=== PATIENT | female | born 1945 | race Caucasian/White ===

== ENCOUNTER 2020-02-22 05:19 | Inpatient (IN) ==
--- NOTE | 2020-01-19 15:03 | PAT Medication Instructions ---
Medication Instructions Date of Service January 19, 2020 Home Medications losartan 50 mg PO QAM metoprolol succinate 25 mg PO QAM peg 400-propylene glycol [Systane Ultra] 1 drp OPB DAILY DO NOT take the morning of surgery losartan 50 mg PO QAM Take morning of surgery With a small sip of water, OTHERWISE NOTHING TO EAT OR DRINK AFTER MIDNIGHT: metoprolol succinate 25 mg PO QAM peg 400-propylene glycol [Systane Ultra] 1 drp OPB DAILY Other Notes If you have any questions please call us at [phone] or [phone] or [phone] or [phone]
--- NOTE | 2020-01-20 11:21 | Anesthesiology Consultation ---
Date of Service January 20, 2020 Assessment & Plan (1) Encounter for pre-operative examination: COVID Status: As of 01/19 assessment, patient denies travel to endemic area, known exposure/sick contacts, or symptoms of COVID19. Patient instructed that they and their household members must follow strict social distancing guidelines, wear a mask in public and avoid travel for 14 days prior to surgery. Preoperative COVID19 testing to be completed prior to surgery per surgeon's arrangements (at [facility] [place]). Patient made aware to self-isolate as much as possible between COVID testing and surgery. Chart Review Chart Review: Acceptable Risk for Surgery (pending surgeon ordered PCP clearance 01/26) and Patient seen in Pre Admission Testing Teaching & Discussion Instructed NPO after midnight before surgery, except medications with 15 cc of water. Medication instructions provided according to the PAT guidelines. History Surgery Operation Date: 02/22/20 09:00 Proposed Procedures p Left Total Knee Arthroplasty - Edwin Hoffman MD Height/Weight Height: 5 ft 4 in Weight: 73.1 kg Allergies Allergy/AdvReac Type Severity Reaction Status Date / Time doxycycline AdvReac Intermediate loose Verified 01/13/20 10:41 bowels Medications Home Medications Medication Instructions Recorded Confirmed Last Taken losartan 50 mg PO QAM 01/13/20 01/13/20 Unknown metoprolol succinate 25 mg PO QAM 01/13/20 01/13/20 Unknown peg 400-propylene glycol [Systane 1 drp OPB DAILY 01/13/20 01/13/20 Unknown Ultra] Past Medical History Medical History Dry eye syndrome GERD (gastroesophageal reflux disease) Hyperlipidemia Hypertension Osteoarthritis Restless leg syndrome Sciatica Exercise / Class Metabolic Activity II 4-5 Yardwork/Stairs/Walk up hill Past Family History Family History Other No significant family history Past Surgical History Surgical History H/O total hysterectomy History of bladder surgery BLADDER TACK History of cataract surgery RT/LEFT History of cholecystectomy History of colonoscopy History of tooth extraction Past Anesthesia History No Hx of Anesthesia Complications and No Family Hx of Anesthesia Complications History of PONV No Hx of PONV and No Hx of Motion Sickness Social History Smoking Status: Never smoker Do You Dip or Chew Tobacco: No Hx Alcohol Use: No Hx Substance Use: No Review of Systems Pt denies any recent chest pain, shortness of breath, palpitations, cough, fever, URI, or uncontrolled acid reflux. Physical Exam Vital Signs BP: 145/67 P: 58bpm SPO2: 98% RA T: 97.5 F R: 12 ENMT Mouth: + dental restorations (few crowns on cuspids); no chipped teeth and no loose teeth Thyromental Distance: > or= 3.5 Finger Breadths (4) Mallampati Class: II (anterior airway) Neck normal visual inspection; neck extension not limited Respiratory normal respiratory effort Auscultation: lungs clear to auscultation bilaterally Cardiovascular Rate/Rhythm: regular rate and regular rhythm Heart Sounds: no murmur Extremities: no edema Testing Laboratory Results 01/20/20 11:44 01/20/20 11:44 PT 10.2 Seconds (9.0-12.0) 01/20/20 11:44 INR 1.0 (0.9-1.1) 01/20/20 11:44 APTT 26.5 Seconds (21.0-31.0) 01/20/20 11:44 Hemoglobin A1c 6.1 % (4.5-5.6) H 01/20/20 11:44 Urine Color Yellow 01/20/20 Unknown Urine Appearance Clear (Clear) 01/20/20 Unknown Urine pH 5.5 (4.5-7.5) 01/20/20 Unknown Ur Specific [place] 1.012 (1.000-1.030) 01/20/20 Unknown Urine Protein Negative (Negative) 01/20/20 Unknown Urine Glucose (UA) Negative (Negative) 01/20/20 Unknown Urine Ketones Negative (Negative) 01/20/20 Unknown Urine Nitrite Negative (Negative) 01/20/20 Unknown Ur Leukocyte Esterase Negative (Negative) 01/20/20 Unknown Blood Type A Positive 01/20/20 11:44 Antibody Screen NEGATIVE 01/20/20 11:44 Electrocardiogram Date: 01/20/20 Findings: + SB @ (54bpm with sinus arrhythmia) 1st degree AV block. Chest X-Ray Date: 01/20/20 Findings: + NAD Cardiomegaly.
--- NOTE | 2020-01-20 12:19 | XRay Report ---
XR chest Pre-admission PA/Lat HISTORY: 74 years-old Female pat preoperative exam. No acute chest complaints COMPARISON: None TECHNIQUE: PA and lateral views of the chest FINDINGS: Cardiac silhouette is enlarged. No pneumothorax, pleural effusion, airspace consolidation or overt pu lmonary edema. Bones of the chest appear grossly intact. IMPRESSION: Cardiomegaly without acute process. ACT 112: Negative or not required by law. The above report was generated using voice recognition software. It may contain grammatical, syntax o r spelling errors. Electronically signed by: Sincere Gaytan M.D. 01/20/2020 12:18 PM
[2020-01-20 12:50] LABS: Basophils # (auto) 0.02 K/uL (0-0.2); Basophils % (auto) 0.4 %; Eosinophils # (auto) 0.09 K/uL (0-0.5); Eosinophils % (auto) 1.8 %; Hematocrit (blood only) 41.2 % (37-47); Hemoglobin 13.7 g/dL (12.0-16.0); Immature Granulocytes # (auto) 0.01 K/uL (0.00-0.02); Immature Granulocytes % (auto) 0.2 %; Lymphocytes # (auto) 1.77 K/uL (1.2-3.4); Mean Corpuscular Hemoglobin 28.7 pg (25-34); Mean Corpuscular Hgb Conc 33.3 g/dL (32-36); Mean Corpuscular Volume 86.4 fL (80-100); Mean Platelet Volume 11.3 fL (7.4-10.4); Monocytes # (auto) 0.47 K/uL (0.11-0.59); Monocytes % (auto) 9.6 %; Neutrophils # (auto) 2.56 K/uL (1.4-6.5); Platelet Count 235 K/uL (130-400); RDW Coefficient of Variation 13.7 % (11.5-14.5); RDW Standard Deviation 43.5 fL (36.4-46.3); Red Blood Count 4.77 M/uL (4.2-5.4); White Blood Count 4.92 K/uL (4.8-10.8)
[2020-01-20 13:05] LABS: Appearance Urine Clear (Clear); Bilirubin Urine Negative (Negative); Blood Urine Negative (Negative); Color Urine Yellow; Glucose Urine UA Negative (Negative); Ketones Urine Negative (Negative); Leukocyte Esterase Urine Negative (Negative); Nitrite Urine Negative (Negative); Protein Urine Negative (Negative); Specific Gravity Urine 1.012 (1.000-1.030); Urobilinogen Urine Negative (Negative); pH Urine 5.5 (4.5-7.5)
[2020-01-20 13:15] LABS: Partial Thromboplastin Ratio 0.9; Partial Thromboplastin Time 26.5 Seconds (21.0-31.0); Prothrombin Time 10.2 Seconds (9.0-12.0)
[2020-01-20 13:30] LABS: Albumin Level 4.1 gm/dl (3.4-5.0); BUN Creatinine Ratio 26.1 (10-20); Calcium 9.8 mg/dl (8.5-10.1); Creatinine Clr Calc Pharmacy 68.1 ml/min; Est GFR (African American) 97.3; Est GFR (Non-African American) 83.9; Potassium 4.6 mmol/L (3.5-5.1)
--- NOTE | 2020-01-20 16:08 | Electrocardiogram Report ---
Test Reason : Blood Pressure : / mmHG Vent. Rate : 054 BPM Atrial Rate : 054 BPM P-R Int : 216 ms QRS Dur : 106 ms QT Int : 460 ms P-R-T Axes : 051 080 044 degrees QTc Int : 436 ms Sinus bradycardia with sinus arrhythmia with 1st degree A-V block Otherwise normal ECG No previous ECGs available Confirmed by Hans Younger ([id number]) on 01/20/2020 4:08:25 PM Referred By: Edwin Hoffman Confirmed By:Hans Younger
[2020-01-21 05:47] LABS: Estimated Average Glucose 128 mg/dl; Hemoglobin A1C 6.1 % (4.5-5.6)
--- NOTE | 2020-02-21 16:47 | History and Physical Report ---
DATE OF ADMISSION: 02/22/2020 CHIEF COMPLAINT: Chronic left knee pain. HISTORY OF PRESENT ILLNESS: This is a 74-year-old female patient of Dr. Hoffman'louie complaining of chronic left knee pain, longstanding, now progressively getting worse. The patient has failed conservative treatment including intra-articular injections, topical analgesics, anti-inflammatories, home exercise program and the use of a brace. The patient has increased pain with weightbearing activities and her pain does interfere with her activities of daily living. The patient has been diagnosed with end-stage osteoarthritis per clinical and radiographic exams and wishes to proceed with a left total knee arthroplasty. PAST MEDICAL HISTORY: Hypertension, hypercholesterolemia, osteoarthritis, rheumatoid arthritis, sciatica, obesity. SOCIAL HISTORY: Nonsmoker and nondrinker. PAST SURGICAL HISTORY: Gallbladder and uterine surgery. FAMILY HISTORY: Noncontributory. REVIEW OF SYSTEMS: Chronic left knee pain, otherwise denies any shortness of breath, chest pain, nausea, vomiting or any other joint complaints. MEDICATIONS: 1. Crestor 5 mg daily. 2. Metoprolol 25 mg daily. 3. Losartan 50 mg daily. ALLERGIES: No known drug allergies. PHYSICAL EXAMINATION: GENERAL: Well-developed, well-nourished 74-year-old female in no acute distress. She is alert and oriented x3 and pleasant. HEENT: Normocephalic, atraumatic. Extraocular motions are intact. Pupils are equal and reactive to light. HEART: Regular rate and rhythm, no murmurs. LUNGS: Clear. ABDOMEN: Soft, nontender, bowel sounds present. EXTREMITIES: Left lower extremity varus deformity with medial joint line tenderness. Positive crepitation, mild effusion. Limited range of motion of 0 to 115 with the knee, 4/5 strength in her left lower extremity. Neurologically and neurovascularly intact left lower extremity. DIAGNOSES: Left knee end-stage osteoarthritis, hypertension, hypercholesterolemia, rheumatoid arthritis, osteoarthritis, sciatica, obesity. PLAN: The patient was advised of her diagnosis. Indications, risks, benefits, postop course have all been reviewed. The patient wished to proceed with a left total knee arthroplasty. Necessary consent forms, preoperative testing and clearances will be obtained.
[2020-02-22] MEDS ORDERED: GABAPENTIN 300 MG CAP PO SCH (06:00)
[2020-02-22] MEDS ORDERED: FAMOTIDINE 20 MG TAB PO SCH (06:00)
[2020-02-22] MEDS ORDERED: TRANEXAMIC ACID 1,000 MG **IV Pre-op IV SCH (06:00)
[2020-02-22] MEDS ORDERED: METOCLOPRAMIDE HCL 10 MG TABLET PO SCH (06:00)
[2020-02-22] MEDS ORDERED: TRANEXAMIC ACID 1,000 MG **IV Intra-op IV SCH (06:00)
[2020-02-22] MEDS ORDERED: CEFAZOLIN 1000MG 1,000 MG/7.5 ML SYR IV SCH (06:00)
[2020-02-22] MEDS ORDERED: ROPIVACAINE 0.5% HCL/PF 150 MG, BUPIVACAINE 0.5% MPF 30 ML, EPINEPHrine 30MG/30ML (OR U... INFIL SCH (06:00)
[2020-02-22] MEDS ORDERED: CeleBREX 200 MG CAP PO SCH (06:00)
[2020-02-22] MEDS ORDERED: ACETAMINOPHEN 500 MG TAB PO SCH (06:00)
[2020-02-22] MEDS ORDERED: LR 500ML BOLUS, THEN 15ML/HR IV SCH (06:00)
[2020-02-22] MEDS ORDERED: dexAMETHasone 4 MG TAB PO SCH (06:00)
[2020-02-22] MEDS ORDERED: fentaNYL citrate 100 MCG/2 ML VIAL ONE (06:18)
[2020-02-22] MEDS ORDERED: MIDAZOLAM HCL 1 MG/ML 2ML VIAL ONE (06:18)
[2020-02-22] MEDS ORDERED: ROPIVACAINE 0.5% 5 MG/ML 30 ML VIAL ONE (06:26)
[2020-02-22] MEDS ORDERED: BUPIVACAINE 0.5 % 5 MG/1 ML PF 10ML VIAL ONE (06:26)
[2020-02-22] MEDS ORDERED: ORTHO JOINT ANESTHETIC ONE (06:46)
[2020-02-22] MEDS ORDERED: BACITRACIN INJ 50,000 UNIT VIAL ONE (06:46)
--- NOTE | 2020-02-22 07:06 | History & Physical Bridge Note ---
Date of Service February 22, 2020 History & Physical Bridge Note I have examined the patient, reviewed the History & Physical and in the interval since the performance of the History & Physical I have noted the following changes of clinical significance: no changes noted
[2020-02-22] MEDS ORDERED: ATROPINE SULFATE 0.1 MG/ML 10ML SYR IV PRN (07:31)
[2020-02-22] MEDS ORDERED: ePHEDrine sulfate 50 MG/ML AMP IV PRN (07:31)
[2020-02-22] MEDS ORDERED: PROPOFOL IV EMULSION 10 MG/ML 20 ML VIAL IV ONE (07:42)
[2020-02-22] MEDS ORDERED: LIDOCAINE HCL 2% 2 ML VIAL/AMP(20MG/ML) INFIL ONE (07:42)
--- NOTE | 2020-02-22 09:08 | Post Operative Brief Note ---
Immediate Post Op Note v1 Date of Surgery February 22, 2020 Pre & Post Diagnosis Operation Date: 02/22/20 07:00 Pre-Op Diagnosis: Unilateral Primary Osteoarthritis, Left Knee Post-Op Diagnosis: Unilateral Primary Osteoarthritis, Left Knee I identified the patient and participated in the time-out.: Yes Procedure Operation Date: 02/22/20 07:00 Actual Procedures p Left Total Knee Arthroplasty(Left) - Edwin Hoffman MD Surgeon Edwin Hoffman MD Supervisor [employer] SARAH Lozoya Estimated Blood Loss 5 Findings Consistent with Post-Op Diagnosis Specimens Bone cuts Drains Hemovac Drain (dual trocar) Anesthesia Type MAC Spinal Regional Complications none Disposition Accompanied Patient To Recovery: No Disposition: Recovery Room Overlapping Procedure I was immediately available: during the entire case.
--- NOTE | 2020-02-22 09:33 | Operative Report ---
Post Operative Report Pre & Post Diagnosis Operation Date: 02/22/20 07:00 Pre-Op Diagnosis: Unilateral Primary Osteoarthritis, Left Knee Post-Op Diagnosis: Unilateral Primary Osteoarthritis, Left Knee I identified the patient and participated in the time-out.: Yes Procedure Operation Date: 02/22/20 07:00 Actual Procedures p Left Total Knee Arthroplasty(Left) - Edwin Hoffman MD Surgeon Edwin Hoffman MD Head Grower SARAH Lozoya Estimated Blood Loss 5 Findings Consistent with Post-Op Diagnosis Specimens Bone cuts Drains 2 Hemovac Anesthesia Type MAC Spinal Regional Complications none Disposition Accompanied Patient To Recovery: No Disposition: Recovery Room Indications 74-year-old female chronic bilateral knee pain radiographs demonstrate advanced bilateral knee osteoarthritis patellofemoral joint medial compartment [id number] medial compartment left knee on weightbearing films. Tricompartmental osteophytes Description of Procedure Patient taken to the operating room placed supine on the operating table and anesthetized under spinal MAC regional anesthesia. Exam under anesthesia d emonstrated good range of motion varus knee moderate effusion no instability. A pneumatic tourniquet was placed about the thigh of the left lower extremity. The left lower extremity was prepped and draped in usual fashion. Leg was elevated exsanguinated with an Esmarch bandage and the pneumatic was raised to 300 mm mercury. An anterior incision was made across the left knee. The skin was incised longitudinally subcutaneous flaps were elevated and an incision was made through the medial retinaculum extending up into the mid third of the quadriceps tendon and extended down to the medial tibial tubercle. Intra- articular findings demonstrated tricompartmental osteoarthritis [id number] medial compartment grade 4 medial facet patellofemoral OA. The knee was exposed by excising the infrapatellar fat pad, excising the meniscal remnants and anterior cruciate ligament. Any inflamed synovial tissue was resected. The fat pad over the anterior femur was resected for placement of the component in that area. The lateral synovial bands were release. Appropriate releases were performed to balance ligaments. The femur was exposed. The custom femoral cutting block was pinned in position. The distal femoral cutting block was applied. The distal femoral cut was made with the oscillating saw. The size 8, 4-in-1 cutting block was placed. The anterior and posterior chamfer cuts were made. The knee was extended and a subperiosteal peel lateral release was performed around the patella. The patella width was measured and width was reproduced using freehand cut technique. The 32 x 8.5 millimeter symmetrical patella was used. 3 drill holes are made for the pegs. The tibia was exposed. A custom tibial cutting block was positioned and drill holes were made for the cutting guide. Cutting guide was placed and the proximal cut was made with the oscillating saw. All osteophytes were resected. The lamina technology applications engineer was used to assess ligamentous balance and the ligaments were balanced in extension and flexion. This required a medial and posterior medial release. The tibia was reexposed and measured for a size E tibial component. This was externally rotated in line with the tibial tubercle and the fixation pins were drilled. The proximal tibia was fashioned with the drill and punch. The size 8 CR femoral trial was inserted. The trial MC inserts were used. The 12 mm insert gave balanced ligaments through full range of motion. The patella tracked centrally. the trials were removed. The orthomix anesthetic cocktail was injected per protocol. The knee was then copiously irrigated with pulsatile lavage antibiotic solution with bacitracin. The final components were cemented with Simplex cement. The final components were persona left CR size 8 standard femoral component, E tibia, 12 MC tibial polyethylene, 32 x 8.5 patella. While the cement cured with the knee in full extension the Betadine soak was used per protocol. After the cement cured, the knee joint was copiously irrigated with antibiotic solution with bacitracin. 2 drains were brought out laterally and connected to a Hemovac. The quadriceps tendon and medial retinaculum were closed with interrupted [id number] #1 Vicryl sutures. The knee was taken through a full range of motion and repair was secure. The subcutaneous tissues were closed with 2-0 Vicryl sutures and skin was closed with cassie. Sterile dressings were applied and the patient tolerated the procedure well. Octavio SMITH my physician instructional assistant, assisted in soft tissue retraction instrument management leg positioning the closure and will participate in the postoperative care of the patient. I attest to the content of the Intraoperative Record and any orders documented therein. Any exceptions are noted below.
--- NOTE | 2020-02-22 09:45 | XRay Report ---
LEFT KNEE 2 VIEWS History: Left total knee arthroplasty. Degenerative arthritis. Postop. FINDINGS: The patient is status post a left total knee arthroplasty. The hardware is intact. No fract ure or dislocation. Skin cassie and surgical drains are in place. IMPRESSION: Left total knee arthroplasty. No evidence for hardware complication. ACT 112: Negative or not required by law. Electronically signed by: Bishop Caballero M.D. 02/22/2020 9:44 AM
--- NOTE | 2020-02-22 10:44 | Anesthesiology Progress Note ---
Date of Service February 22, 2020 Anesthesia Post Procedure Vital Signs Vital Signs: Temp Pulse Pulse Resp BP Pulse Ox 02/22/20 10:30 52 L 18 122/61 94 02/22/20 10:20 36.3 C L 52 L 16 137/58 L 95 02/22/20 10:10 51 L 18 138/74 95 02/22/20 10:00 60 16 131/65 95 02/22/20 09:50 54 L 16 143/64 H 97 02/22/20 09:40 60 18 144/68 H 97 02/22/20 09:30 52 L 18 140/68 100 02/22/20 09:20 58 L 18 137/64 100 02/22/20 09:13 36.1 C L 64 18 137/70 100 02/22/20 06:25 66 18 190/88 H 99 02/22/20 06:03 36.9 C 68 18 184/84 H 99 Transfer of Care Handoff Completed per policy Notes Mental Status: alert / awake / arousable and participated in evaluation Patient Amnestic to Procedure: Yes Nausea / Vomiting: adequately controlled Pain: adequately controlled Airway Patency, RR, SpO2: stable & adequate BP & HR: stable & adequate Hydration State: stable & adequate Neuraxial Anesthesia: was administered and sensory block is resolving Anesthetic Complications: no major complications apparent
[2020-02-22] MEDS ORDERED: ONDANSETRON INJ 2 MG/ML 2 ML VIAL IV PRN (11:04)
[2020-02-22] MEDS ORDERED: bisacodyL 10 MG SUPP PR PRN (11:04)
[2020-02-22] MEDS ORDERED: MAGNESIUM HYDROXIDE SUSP 30 ML UDC PO PRN (11:04)
[2020-02-22] MEDS ORDERED: HYDROmorphone INJ 0.5 MG/0.5 ML SYR IV PRN (11:04)
[2020-02-22] MEDS ORDERED: OXYCODONE HCL IR 5 MG TAB (IMMEDIATE RELEASE) PO PRN (11:04)
[2020-02-22] MEDS ORDERED: NALOXONE HCL 0.4 MG/1 ML VIAL/CARP IV PRN (11:04)
[2020-02-22] MEDS: SODIUM CHLORIDE 0.9% 1000ML 1,000 ML IV SCH ×2 (11:24→21:23)
[2020-02-22] MEDS: ACETAMINOPHEN 500 MG TAB PO SCH ×2 (13:28→21:54)
[2020-02-22] MEDS: CEFAZOLIN 1000MG 1,000 MG/7.5 ML SYR IV SCH ×2 (15:21→23:39)
[2020-02-22] MEDS: CeleBREX 200 MG CAP PO SCH (21:21)
[2020-02-22] MEDS: SENNA 8.6 MG TAB PO SCH (21:21)
[2020-02-22] MEDS: DOCUSATE SODIUM 100 MG CAP PO SCH (21:22)
[2020-02-22] MEDS: ASPIRIN 81 MG ECTAB PO SCH (21:22)
[2020-02-23] MEDS: ACETAMINOPHEN 500 MG TAB PO SCH ×3 (06:13→20:51)
[2020-02-23 06:17] LABS: Hematocrit (blood only) 34.1 % (37-47); Hemoglobin 11.4 g/dL (12.0-16.0); Mean Corpuscular Hemoglobin 29.1 pg (25-34); Mean Corpuscular Hgb Conc 33.4 g/dL (32-36); Mean Platelet Volume 11.1 fL (7.4-10.4); Platelet Count 173 K/uL (130-400); RDW Coefficient of Variation 13.6 % (11.5-14.5); RDW Standard Deviation 43.5 fL (36.4-46.3); Red Blood Count 3.92 M/uL (4.2-5.4); White Blood Count 10.52 K/uL (4.8-10.8)
[2020-02-23 06:44] LABS: BUN Creatinine Ratio 22.5 (10-20); Calcium 9.2 mg/dl (8.5-10.1); Creatinine Clr Calc Pharmacy 67.6 ml/min; Est GFR (African American) 97.3; Est GFR (Non-African American) 83.9; Potassium 4.2 mmol/L (3.5-5.1)
--- NOTE | 2020-02-23 07:50 | Anesthesiology Progress Note ---
Date of Service February 23, 2020 Anesthesia Post Procedure Vital Signs Vital Signs: Temp Pulse Pulse Resp BP Pulse Ox 02/23/20 03:42 36.6 C 53 L 20 150/62 H 97 02/22/20 23:52 36.6 C 56 L 18 159/69 H 96 02/22/20 19:58 36.4 C L 62 20 151/68 H 95 02/22/20 16:45 36.4 C L 62 18 132/64 94 02/22/20 14:36 36.4 C L 61 16 116/61 95 02/22/20 13:34 36.4 C L 67 16 134/71 94 02/22/20 12:34 36.4 C L 56 L 17 127/69 96 02/22/20 12:01 56 L 16 128/73 95 02/22/20 11:31 36.5 C 58 L 16 126/76 95 02/22/20 10:54 36.7 C 57 L 18 128/67 96 02/22/20 10:40 61 18 115/61 97 02/22/20 10:30 52 L 18 122/61 94 02/22/20 10:20 36.3 C L 52 L 16 137/58 L 95 02/22/20 10:10 51 L 18 138/74 95 02/22/20 10:00 60 16 131/65 95 02/22/20 09:50 54 L 16 143/64 H 97 02/22/20 09:40 60 18 144/68 H 97 02/22/20 09:30 52 L 18 140/68 100 02/22/20 09:20 58 L 18 137/64 100 02/22/20 09:13 36.1 C L 64 18 137/70 100 Pain Intensity Left Hip: Pain Intensity: 2 Notes Mental Status: alert / awake / arousable and participated in evaluation Patient Amnestic to Procedure: Yes Nausea / Vomiting: adequately controlled Pain: adequately controlled Airway Patency, RR, SpO2: stable & adequate BP & HR: stable & adequate Hydration State: stable & adequate Neuraxial Anesthesia: was administered and sensory block resolved Anesthetic Complications: no major complications apparent and Pt Satisfied with anesthetic care
--- NOTE | 2020-02-23 08:41 | Consultation ---
Date of Consultation February 23, 2020 Assessment & Plan (1) S/P total knee arthroplasty: Post op day# 1 S/P L TKA by Dr Hoffman EBL #5ml Hemovac: Total 300ml -pain management per ortho -wound management per ortho -PT/OT as appropriate -DVT prophylaxis per ortho -incentive spirometry -Hgb: 11.4 from 13.7 pre-op. Continue to monitor H&H (2) Hypertension: Stable -Continue losartan (3) Hyperlipidemia: -Recently prescribed atorvastatin. Has not started yet -Recommend starting atorvastatin as directed. Pt wishes to start upon hospital discharge DVT Prophylaxis -SCDs per ortho Disposition per primary service Follows with Dr Galvan for routine care Pt was seen and care coordinated with Dr Barrera. See addendum Thank you for this consultation. We will follow the patient with you during their hospital stay. You can reach a member of the [facility] Hospitalist Team 19/01 via pager @ [phone]. Supervising Physician Co-Signing Physician Notes Patient is a 74-year-old female with history of hypertension, hyperlipidemia and other medical problems was seen and examined postop after having left total knee arthroplasty by Dr. Gama. Patient is doing well postop. Lower extremity numbness improved when compared to prior surgery. Reports having some sciatic pain after PT this morning. Denies any chest pain, shortness of breath, dizziness, nausea, abdominal pain. + Flatus, no BM yet. On exam patient is moderately built and nourished, no apparent distress, normocephalic atraumatic, lungs are clear to auscultation, S1-S2, no murmur, no pedal edema, abdomen soft, nontender, normal bowel sounds, left knee surgical site in dressing, alert, awake, oriented, grossly no focal neurological deficits. S/P TKA pod#[address] Hoffman. Monitor for postop anemia. Continue local wound care, activity, DVT prophylaxis as per primary team. Continue bowel regimen to prevent constipation. Pain control. Continue PT OT. Continue losartan for high blood pressure. May need further evaluation for sciatic pain with orthopedics as outpatient. I personally reviewed the record. Patient is interviewed and examined at bedside. Patient's care is coordinated with Macrina Sevilla. Please refer to the documentation above for details of patient's presentation and for discussion of other issues. History of Present Illness Requesting Physician: Dr Hoffman Reason for Consultation: post op medical management Attending Physician: Edwin Hoffman MD History of Present Illness Pt is 74 y/o F with PMH HTN, dyslipidemia seen in consultation s/p L TKA yesterday by Dr Hoffman. Post op pt reports doing well. Does report some residual numbness sensation to left leg. Eating and drinking well. Urinating without difficulty. Passing gas but no BM yet. Denies fever/chills, diaphoresis, N/V/D, DANIEL, dizziness, CP, SOB, palpitations, cough, choking, abdominal pain, weakness, extremity edema, rashes, urinary symptoms. Allergies Allergy/AdvReac Type Severity Reaction Status Date / Time doxycycline AdvReac Intermediate loose Verified 02/22/20 05:45 bowels Home Medications Home Medications Medication Instructions Recorded Confirmed Type losartan 50 mg PO QAM 01/13/20 02/22/20 History metoprolol succinate 25 mg PO QAM 01/13/20 01/13/20 History peg 400-propylene glycol [Systane 1 drp OPB DAILY 01/13/20 01/13/20 History Ultra] atorvastatin 40 mg PO WK 02/23/20 02/23/20 History Patient History Medical History Dry eye syndrome GERD (gastroesophageal reflux disease) Hyperlipidemia Hypertension Osteoarthritis Restless leg syndrome Sciatica Surgical History H/O total hysterectomy History of bladder surgery BLADDER TACK History of cataract surgery RT/LEFT History of cholecystectomy History of colonoscopy History of tooth extraction S/P total knee arthroplasty Left knee - 02/22/2020; Dr Hoffman Family History Other Heart disease Stroke Social History Smoking Status: Never smoker Second Hand Exposure: No; Do You Dip or Chew Tobacco: No; Tobacco Cessation Education Requested by Patient: No Hx Alcohol Use: No Hx Substance Use: No Preferred Language: Vietnamese Communication Ability: Effective Accreditation Specialist Required: No Beliefs That Will Affect Care: None Current Living Situation: Alone Feels Safe at Home: Yes Safety Concerns: Feels Safe At This Time Review of Systems Review of Systems: All systems reviewed & are unremarkable except as noted in HPI & below Physical Exam Physical Exam: General: no distress, WDWN Head: normocephalic, atraumatic Eyes: conjunctiva non-injected, anicteric ENT: normal inspection external ears, nose, mucous membranes moist Neck: supple, trachea midline Lungs: clear, no respiratory distress, no wheezing/rhonchi/rales CV: RRR, no murmur, no pretibial edema Abd: normal BS, soft, non-tender Ext: non-tender, bilateral pedal pushes intact, limited left pedal pull Neuro: A&O x 3, no focal deficits noted, normal affect Skin: warm, dry Results & Data ([facility]) Vital Signs (Past 12 Hours) Vital Signs Temp Pulse Resp BP BP Pulse Ox 02/23/20 07:55 36.5 C 58 L 16 156/71 H 98 02/23/20 03:42 36.6 C 53 L 20 150/62 H 97 02/22/20 23:52 36.6 C 56 L 18 159/69 H 96 Laboratory Results Short CBC 02/23/20 Range/Units 05:49 WBC 10.52 (4.8-10.8) K/uL Hgb 11.4 L (12.0-16.0) g/dL Hct 34.1 L (37-47) % Plt Count 173 (130-400) K/uL BMP 02/23/20 05:49 Sodium 140 Potassium 4.2 Chloride 111 H Carbon Dioxide 25 BUN 16 Creatinine 0.71 Glucose 111 H Calcium 9.2
[2020-02-23] MEDS: ASPIRIN 81 MG ECTAB PO SCH ×2 (08:44→20:35)
[2020-02-23] MEDS: METOPROLOL SUCC 25MG EXT REL TAB PO SCH (08:44)
[2020-02-23] MEDS: MULTIVITAMIN TAB PO SCH (08:45)
[2020-02-23] MEDS: CeleBREX 200 MG CAP PO SCH ×2 (08:45→20:34)
[2020-02-23] MEDS: LOSARTAN POTASSIUM 50 MG TAB PO SCH (08:45)
[2020-02-23] MEDS: DOCUSATE SODIUM 100 MG CAP PO SCH ×3 (08:45→20:35)
--- NOTE | 2020-02-23 10:47 | Orthopedic Progress Note ---
Date of Service February 23, 2020 Assessment & Plan (1) S/P total knee arthroplasty: POD #1, Left TKA PT/ OT DVT proph- ASA, TEDS D/C planning- Home with OPPT at home Appreciate medicine input. Continue PT and pain control. Admission and Anticipated Discharge Date Admission Date: February 22, 2020 Subjective POD#1, Doing well, pain is only issue, worsened overnight. Has not done a lot of PT yet other than to bathroom. Denies SOB, CP, N/V, dizziness. Pain controlled well. States she is doing OPPT at home on D/C. Physical Exam Physical Exam: Left knee dressings c/d/i, no drainage. Toes/ ankle mobile. No calf tenderness. A&Ox3. Mild drop foot, improving. Results & Data ([facility]) Vital Signs (Past 12 Hours) Vital Signs Temp Pulse Resp BP BP Pulse Ox 02/23/20 08:48 64 165/77 H 99 02/23/20 07:55 36.5 C 58 L 16 156/71 H 98 02/23/20 03:42 36.6 C 53 L 20 150/62 H 97 02/22/20 23:52 36.6 C 56 L 18 159/69 H 96
[2020-02-23] MEDS: SENNA 8.6 MG TAB PO SCH (20:35)
[2020-02-24 06:18] LABS: Hematocrit (blood only) 35.8 % (37-47); Hemoglobin 11.8 g/dL (12.0-16.0); Mean Corpuscular Hemoglobin 28.4 pg (25-34); Mean Corpuscular Volume 86.1 fL (80-100); Mean Platelet Volume 10.5 fL (7.4-10.4); Platelet Count 189 K/uL (130-400); RDW Coefficient of Variation 13.8 % (11.5-14.5); RDW Standard Deviation 43.5 fL (36.4-46.3); Red Blood Count 4.16 M/uL (4.2-5.4); White Blood Count 8.52 K/uL (4.8-10.8)
[2020-02-24] MEDS: ACETAMINOPHEN 500 MG TAB PO SCH (06:27)
[2020-02-24 06:50] LABS: BUN Creatinine Ratio 18.1 (10-20); Calcium 9.6 mg/dl (8.5-10.1); Creatinine Clr Calc Pharmacy 65.7 ml/min; Est GFR (Non-African American) 81.1
--- NOTE | 2020-02-24 08:06 | Orthopedic Progress Note ---
Date of Service February 24, 2020 Assessment & Plan (1) S/P total knee arthroplasty: POD #2, Left TKA PT/ OT DVT proph- ASA, TEDS D/C planning- Home with OPPT at home, today. Appreciate medicine input. Increased PT likely due to pain, per nursing only using tylenol. Admission and Anticipated Discharge Date Admission Date: February 23, 2020 Subjective POD#2, Doing well, pain is only issue. Did well in PT. Denies SOB, CP, N/V, dizziness. Pain controlled well. States she is doing OPPT at home on D/C. Physical Exam Physical Exam: Left knee silverlon c/d/i, no drainage. Toes/ ankle mobile. No calf tenderness. A&Ox3. Results & Data ([facility]) Vital Signs (Past 12 Hours) Vital Signs Temp Pulse Pulse Resp BP BP Pulse Ox 02/24/20 07:30 36.6 C 64 16 160/78 H 164/80 H 97 02/23/20 23:14 36.6 C 69 18 150/70 H 97
[2020-02-24] MEDS: METOPROLOL SUCC 25MG EXT REL TAB PO SCH (08:40)
[2020-02-24] MEDS: LOSARTAN POTASSIUM 50 MG TAB PO SCH (08:40)
[2020-02-24] MEDS: ASPIRIN 81 MG ECTAB PO SCH (08:41)
[2020-02-24] MEDS: CeleBREX 200 MG CAP PO SCH (08:41)
[2020-02-24] MEDS: DOCUSATE SODIUM 100 MG CAP PO SCH (08:41)
[2020-02-24] MEDS: MULTIVITAMIN TAB PO SCH (08:42)
--- NOTE | 2020-02-24 11:36 | Hospitalist Progress Note ---
Date of Service February 24, 2020 Assessment & Plan (1) S/P total knee arthroplasty: S/P Left TKA Acute post Op -blood loss anemia S/P Left TKA by Dr Hoffman POD#2 Pain control, DVT prophylaxis, wound care, activity as per primary team Appreciate orthopedics input Continue PT OT, incentive spirometer Monitor CBC (2) Hypertension: Blood pressure slightly elevated secondary to pain Continue losartan Monitor (3) Hyperlipidemia: Recently prescribed atorvastatin. Has not started yet Recommend starting atorvastatin as directed. Pt wishes to start upon hospital discharge DVT PX: SCDs per ortho Disposition per primary service Admission and Anticipated Discharge Date Admission Date: February 23, 2020 Subjective Patient is seen and examined at bedside Complains of minimal pain at the site of surgery of left knee with ambulation Otherwise feels well today Denies chest pain, shortness of breath, dizziness, nausea, abdominal pain Offers no other complaints Review of Systems Review of Systems: All systems reviewed & are unremarkable except as noted in HPI & below Physical Exam Physical Exam: Physical Exam: Vitals signs as noted above General Appearance:Moderately built and nourished, no apparent distress Head: normocephalic, Atraumatic Eyes: normal inspection, EOMI Neck: supple, Trachea midline Respiratory/Chest: Normal breath sounds, CTA Cardiovascular: S1, S2, No murmur Abdomen/GI:Soft, Non tender, Bowel sounds present Extremities/Musculoskelatal:normal inspection, no edema, Left Knee in dressing Neurologic/Psych:AAOX3, grossly no focal neurological deficits Skin: normal color, warm Results & Data Results & Data ([facility]) Vital Signs (Past 12 Hours) Vital Signs Temp Pulse Pulse Resp BP BP Pulse Ox 02/24/20 10:36 36.6 C 69 64 16 160/78 H 164/80 H 97 02/24/20 07:30 36.6 C 64 16 160/78 H 164/80 H 97 Laboratory Results Short CBC 02/24/20 Range/Units 05:47 WBC 8.52 (4.8-10.8) K/uL Hgb 11.8 L (12.0-16.0) g/dL Hct 35.8 L (37-47) % Plt Count 189 (130-400) K/uL BMP 02/24/20 05:47 Sodium 140 Potassium 4.0 Chloride 107 Carbon Dioxide 27 BUN 13 Creatinine 0.73 Glucose 82 Calcium 9.6
--- NOTE | 2020-03-08 00:50 | Discharge Summary (DS) ---
HISTORY OF PRESENT ILLNESS: This is a 74-year-old female patient of Dr. Hoffman'louie complaining of chronic left knee pain, longstanding, now progressively getting worse. The patient failed conservative treatment and elected to proceed with a left total knee arthroplasty. PAST MEDICAL HISTORY: Hypertension, hypercholesterolemia, osteoarthritis, rheumatoid arthritis, sciatica and obesity. POSTOPERATIVE COURSE: The patient underwent a left total knee arthroplasty on 02/22/2020. She was followed closely with medical consultation, DVT prophylaxis in the form of aspirin, physical therapy and pain control. She has slight increase in her blood pressure likely due to pain as her vital signs and other lab work were stable. Her blood pressure did stabilize on discharge. Otherwise, an uneventful postoperative course. PHYSICAL EXAMINATION: On discharge, left knee Silverlon dressing was clean, dry and intact. There is no redness or drainage. She had no calf tenderness. Negative Homans sign. Her toes and ankle were mobile. Neurologically and neurovascularly she is intact in the left lower extremity. DIAGNOSES: Status post left total knee arthroplasty with postoperative hypertension due to pain. She has a history of hypertension, hypercholesterolemia, osteoarthritis, rheumatoid arthritis, sciatica and obesity. PLAN: The patient was discharged home with home outpatient physical therapy. She will continue her preadmission medications with the addition of aspirin for DVT prophylaxis as well as the addition of pain medications as needed. She will follow up as scheduled as an outpatient.
== END 2020-02-24 12:27 | disposition home health service (06) | DRG 470 ==
LOC: ASU 05:19 → 3N 05:19

== ENCOUNTER 2022-05-07 09:59 | Observation (INO) ==
--- NOTE | 2022-04-08 14:05 | PAT Medication Instructions ---
Medication Instructions Date of Service April 08, 2022 Home Medications Medication Instructions Recorded celecoxib 200 mg capsule (Celebrex) 200 mg PO BID 30 days #60 caps 02/24/20 losartan 50 mg tablet 50 mg PO QAM metoprolol succinate 25 mg tablet,extended release 24 hr 50 mg PO QAM peg 400-propylene glycol 0.4 %-0.3 % eye drops (Systane Ultra) 1 drp OPB DAILY atorvastatin 40 mg tablet 5 mg PO QAM celecoxib 200 mg capsule (Celebrex) 200 mg PO BID ASK your surgeon for instructions celecoxib 200 mg capsule (Celebrex) 200 mg PO BID DO NOT take the morning of surgery losartan 50 mg tablet 50 mg PO QAM Take morning of surgery With a small sip of water, OTHERWISE NOTHING TO EAT OR DRINK AFTER MIDNIGHT: metoprolol succinate 25 mg tablet,extended release 24 hr 50 mg PO QAM atorvastatin 40 mg tablet 5 mg PO QAM peg 400-propylene glycol 0.4 %-0.3 % eye drops (Systane Ultra) 1 drp OPB DAILY Other Notes If you have any questions please call us at [phone] or [phone] or [phone] or [phone]
--- NOTE | 2022-04-11 13:33 | Anesthesiology Consultation ---
Date of Service April 11, 2022 Assessment & Plan (1) Encounter for pre-operative examination: - COVID screening: Per assessment on 04/11: No known COVID-19 positive contacts or current COVID-19 related symptoms. Travel screen negative. At surgeon discretion if preop Covid testing being done. - S/P Left TKA (02/22/20): SAB at L3/4 x1 attempt + PNB at [facility]. No issues noted per post-op anesthesia progress note. - Hematology telemedicine visit (12/20/20): "The heterozygous factor V Leiden (FVL) variant (1691G>A; R506Q) in the coagulation Factor V gene was detected by real-time PCR. This mutation leads to reduced inactivation of clotting factor V by activated protein C (i.e. APC resistance), which causes increased thrombin generation. Heterozygous carriers of the FVL mutation have an approximately 3- fold to 8-fold increased risk of venous thromboembolism (VTE) compared to non- carriers. However, the absolute risk of VTE in heterozygotes remains low, with only ~5% of carriers developing a VTE by age 65. The prevalence of FVL mutations varies according to population. Approximately 3-8% of the general [place] and population carry a heterozygous FVL mutation." - Cardiology office visit (07/23/21): "Paroxysmal atrial tachycardia.. Patient states she could not tolerate the increased dose of metoprolol 75 mg and reduce the dose to 50 mg p.o. daily. She states that she is otherwise feeling much better this week. She denies chest pain, dyspnea, or syncope. She also states her symptoms of palpitations are less. Patient can go back on metoprolol succinate 50 mg p.o. daily.. Return to clinic in 6 months, sooner if needed." - Patient acceptable risk for surgery pending surgeon-ordered PCP preop evaluation (Dr. Mei- scheduled 04/14). Chart Review Chart Review: Patient seen in Pre Admission Testing Teaching & Discussion Pre-Anesthesia Teaching/Discussion Notes: Instructed NPO after midnight before surgery,except medications with 15 cc of water. Medication instructions provided according to the PAT guidelines. History Surgery Operation Date: 05/07/22 09:35 Proposed Procedures p Right Total Knee Arthroplasty - Edwin Hoffman MD Height/Weight Height: 5 ft 4 in Weight: 75.3 kg Allergies Allergy/AdvReac Type Severity Reaction Status Date / Time doxycycline AdvReac Intermediate loose Verified 04/08/22 07:33 bowels Medications Home Medications Medication Instructions Recorded Confirmed Last Taken losartan 50 mg tablet 50 mg PO QAM 01/13/20 04/08/22 02/21/20 08:00 metoprolol succinate 25 mg 50 mg PO QAM 01/13/20 04/08/22 02/22/20 04:00 tablet,extended release 24 hr peg 400-propylene glycol 0.4 %-0.3 1 drp OPB DAILY 01/13/20 04/08/22 02/22/20 04 :00 % eye drops (Systane Ultra) atorvastatin 40 mg tablet 5 mg PO QAM 02/23/20 04/08/22 Unknown celecoxib 200 mg capsule (Celebrex) 200 mg PO BID 30 days #60 caps 02/24/20 04/08/22 Unknown Past Medical History Medical History Dry eye syndrome Factor 5 Leiden mutation, heterozygous Dx 2020 (2 markers), [facility] hemat[facility] History of COVID-19 Dx 05/2021- loss of taste/smell, fatigue, Covid PNA > symptoms resolved Hyperlipidemia Hypertension Osteoarthritis Paroxysmal atrial tachycardia Restless leg syndrome Sciatica Exercise / Class Metabolic Activity II 4-5 Yardwork/Stairs/Walk up hill Past Family History Family History Other Heart disease Stroke Past Surgical History Surgical History H/O total hysterectomy History of bladder surgery BLADDER TACK History of cataract surgery RT/LEFT History of cholecystectomy History of colonoscopy History of tooth extraction S/P total knee arthroplasty Left TKA (02/22/20): SAB at L3/4 x1 attempt + PNB at [facility]. No issues noted per post-op anesthesia progress note. Past Anesthesia History No Hx of Anesthesia Complications and No Family Hx of Anesthesia Complications History of PONV No Hx of PONV and Hx of Motion Sickness (+ vertigo) Social History Smoking Status: Never smoker Do You Dip or Chew Tobacco: No Hx Alcohol Use: No Hx Substance Use: No substance use type: does not use Review of Systems Patient denies chest pain, shortness of breath, dyspnea on exertion, fever, chills, cough, wheezing, palpitations. Physical Exam Vital Signs VITALS BP 137/79 P 69 TEMP 97.9 SP02 98%RA RESP 16 PHYSICAL Full cervical extension range of motion. Full TMJ range of motion. TMD 2.5 finger breaths (small chin) Mallampati Score 2 Dentition: intact, plan for upcoming root canal/repair 04/23- on abx (pt aware to obtain approval of timing for dental work prior to surgery) Lungs: clear throughout to auscultation Cardiac: regular rate and rhythm, no murmurs noted Spine: normal Carotid arteries: negative bruit Extremities: no edema Lab Results Anesthesia Preop Results Results Anesthesia Widget: WBC 6.59 K/ul (4.8-10.8) 04/11/22 Hgb 13.1 g/dl (12.0-16.0) 04/11/22 Hct 38.9 % (34.1-44.9) 04/11/22 Plt 210 K/uL (130-400) 04/11/22 Na 137 mmol/L (136-145) 04/11/22 K 4.4 mmol/L (3.5-5.1) 04/11/22 Cl 103 mmol/L (98-107) 04/11/22 CO2 26 mmol/L (21-32) 04/11/22 BUN 18 mg/dl (6-23) 04/11/22 Creat 0.71 mg/dl (0.6-1.2) 04/11/22 Glucose Level 127 mg/dl (70-99(Fasting)) H 04/11/22 PT 10.2 Seconds (9.0-12.0) 04/11/22 PTT 27.0 Seconds (21.0-31.0) 04/11/22 INR 1.0 (0.9-1.1) 04/11/22 HA1c 6.0 % (4.5-5.6) H 04/11/22 Urine Color Yellow 04/11/22 Urine Appearance Clear (Clear) 04/11/22 Urine pH 5.5 (4.5-7.5) 04/11/22 Urine Specific [place] 1.016 (1.000-1.030) 04/11/22 Urine Protein Negative (Negative) 04/11/22 Urine Glucose (UA) Negative (Negative) 04/11/22 Urine Ketones Negative (Negative) 04/11/22 Urine Blood Negative (Negative) 04/11/22 Urine Nitrite Negative (Negative) 04/11/22 Urine Bilirubin Negative (Negative) 04/11/22 Urine Urobilinogen Negative (Negative) 04/11/22 Urine Leukocyte Esterase 1+ (Negative) H 04/11/22 Urine WBC (Auto) 1-5 /hpf (0-5) 04/11/22 Urine RBC (Auto) 0-4 /hpf (0-4) 04/11/22 Urine Hyaline Casts (Auto) 0 /lpf (0-5) 04/11/22 Urine Epithelial Cells (Auto) >30 /lpf (0-5) H 04/11/22 Urine Bacteria (Auto) Negative (Negative) 04/11/22 Blood Type A Positive 04/11/22 Antibody Screen NEGATIVE 04/11/22 Testing Electrocardiogram Date: 06/30/21 Sinus rhythm with first-degree AV block at 82 bpm. Possible LAE. RBBB. Chest X-Ray Date: 10/14/21 Unchanged mild enlargement of the cardiomediastinal silhouette. Resolution of previously seen bilateral airspace opacities. No focal consolidation, pleural effusion or pneumothorax. No evidence of acute cardiopulmonary disease. Echocardiogram Date: 04/03/20 LVEF greater than 70%. No regional motion abnormality. Grade 1 diastolic dysfunction. Mild TR. Stress Test Date: 09/19/20 Type: exercise Negative exercise stress echo/EKG for ischemia at 85% MPHR. No stress-induced chest pain. LVEF 55-59%. Mildly increased concentric LV wall thickness. Grade 1 diastolic dysfunction. Mild AR/MR/TR/FL. Poor functional status. COVID-19 Risk Screen Screening Information COVID-19 Screen Date: 04/11/22 Exposure 21 Days Family/Household +COVID Last 21 Days: No Exposure 10 Days Any COVID Exposure Last 10 Days: No Symptoms Last 10 Days Experienced COVID Sx Last 10 Days: No + COVID 0-90 Days COVID + in Last 0-90 Days: No
--- NOTE | 2022-04-13 09:06 | History & Physical Report ---
Date of Service April 13, 2022 Assessment & Plan (1) Primary osteoarthritis of right knee: Plan: Treatment options discussed with the patient. She has failed conservative measures. She would like to proceed with surgical invention. Risks, benefits and alternatives to surgery including but not limited to infection, DVT, pain, stiffness, need for revision surgery, damage to blood vessels, damage to nerves, PE, , were discussed with the patient and they wish to proceed. Plan on right total knee arthroplasty scheduled for May 07 at [facility] with Dr. Hoffman. We will plan on home health PT postop. We will plan on Xarelto 10 mg daily for 1 month postop for DVT prophylaxis. All questions answered. She will follow up postop. History of Present Illness Chief Complaint: Right knee pain Primary Care Provider: Charisma Galvan DO 77-year-old female with past medical history significant for hypertension, factor V Leiden mutation who presents with ongoing right knee pain. She has failed conservative measures including steroid injections and anti- inflammatories. Pain is interfering with her daily activities. She would like to proceed with surgical invention. Patient denies headaches, sweats, fevers, chills, double vision, blurred vision, cough, sore throat, dysphagia, chest pain, sob, wheezing, n/v/d/c, numbness, tingling, fatigue, urinary symptoms, mood disorders. ROS positive for right knee pain and stiffness. Allergies Allergy/AdvReac Type Severity Reaction Status Date / Time doxycycline AdvReac Intermediate loose Verified 04/08/22 07:33 bowels Home Medications Medication Instructions Recorded Confirmed Type losartan 50 mg tablet 50 mg PO QAM 01/13/20 04/08/22 History metoprolol succinate 25 mg 50 mg PO QAM 01/13/20 04/08/22 History tablet,extended release 24 hr peg 400-propylene glycol 0.4 %-0.3 1 drp OPB DAILY 01/13/20 04/08/22 History % eye drops (Systane Ultra) atorvastatin 40 mg tablet 5 mg PO QAM 02/23/20 04/08/22 History celecoxib 200 mg capsule (Celebrex) 200 mg PO BID 30 days #60 caps 02/24/20 04/08/22 Rx Past Med/Surg History Medical History Dry eye syndrome Factor 5 Leiden mutation, heterozygous Dx 2020 (2 markers), [facility] History of COVID-19 Dx 05/2021- loss of taste/smell, fatigue, Covid PNA > symptoms resolved Hyperlipidemia Hypertension Osteoarthritis Paroxysmal atrial tachycardia Restless leg syndrome Sciatica Surgical History H/O total hysterectomy History of bladder surgery BLADDER TACK History of cataract surgery RT/LEFT History of cholecystectomy History of colonoscopy History of tooth extraction S/P total knee arthroplasty Left TKA (02/22/20): SAB at L3/4 x1 attempt + PNB at [facility]. No issues noted per post-op anesthesia progress note. Family History Other Heart disease Stroke Social History Smoking Status: Never smoker Second Hand Exposure: No; Hx Alcohol Use: No Hx Substance Use: No Preferred Language: Chinese Communication Ability: Effective Emt Required: No Beliefs That Will Affect Care: None Current Living Situation: Alone Feels Safe at Home: Yes Assistive Devices: None Review of Systems All systems reviewed & are unremarkable except as noted in HPI & below Physical Exam Constitutional: well developed and well nourished; no acute distress Eyes: PERRL, conjunctivae normal, anicteric sclerae ENMT: external ear and nose normal, oropharynx normal Neck: trachea midline, no thyromegaly Respiratory: normal respiratory effort, lungs clear to auscultation Cardiovascular: RRR, no murmur, no edema Musculoskeletal: Right knee: Varus alignment. Mild effusion. Tenderness medial joint line. She has positive Ese's. Stable to valgus varus stress test. Range of motion 10 to 125 degrees. Skin: no rashes, warm and dry Neurologic: patellar DTR's 2+ bilat, sensation intact Psychiatric: A+Ox3, euthymic affect Results & Data ([facility]) Diagnostic Findings Right knee radiographs demonstrate tricompartmental degenerative changes. She has [id number] medial compartment on flexion view. There is subchondral sclerosis.
[~2022-05-07 09:59] MED LIST: ACETAMINOPHEN 500 MG TAB PO SCH; BUPIVACAINE 0.5 % 5 MG/1 ML PF 10ML VIAL ONE; CeleBREX 200 MG CAP PO SCH; FAMOTIDINE 20 MG TAB PO SCH; GABAPENTIN 300 MG CAP PO SCH; LR 500ML BOLUS, THEN 15ML/HR IV SCH; METOCLOPRAMIDE HCL 10 MG TABLET PO SCH; MIDAZOLAM HCL 1 MG/ML 2ML VIAL ONE; ROPIVACAINE 0.5% 5 MG/ML 30 ML VIAL ONE; ROPIVACAINE 0.5% HCL/PF 150 MG, BUPIVACAINE 0.75% MPF 20 ML, EPINEPHrine 30MG/30ML (OR ... INSTIL SCH; TRANEXAMIC ACID 1,000 MG **IV Intra-op IV SCH; TRANEXAMIC ACID 1,000 MG **IV Pre-op IV SCH; ceFAZolin 2000MG 2,000 MG/15 ML SYR IV SCH; dexAMETHasone 4 MG TAB PO SCH
[2022-05-07] MEDS ORDERED: fentaNYL citrate 100 MCG/2 ML VIAL IV PRN (11:51)
[2022-05-07] MEDS ORDERED: ONDANSETRON INJ 2 MG/ML 2 ML VIAL IV PRN ×2 (11:51→16:31)
[2022-05-07] MEDS ORDERED: ATROPINE SULFATE 0.1 MG/ML 10ML SYR IV PRN (11:51)
[2022-05-07] MEDS ORDERED: ePHEDrine sulfate 50 MG/ML AMP IV PRN (11:51)
[2022-05-07] MEDS ORDERED: ORTHO JOINT ANESTHETIC ONE (12:00)
--- NOTE | 2022-05-07 12:37 | History & Physical Bridge Note ---
Date of Service May 07, 2022 History & Physical Bridge Note I have examined the patient, reviewed the History & Physical and in the interval since the performance of the History & Physical I have noted the following changes of clinical significance: no changes noted
[2022-05-07] MEDS ORDERED: ONDANSETRON INJ 2 MG/ML 2 ML VIAL ONE (13:19)
[2022-05-07] MEDS ORDERED: LIDOCAINE 2% 2 ML VIAL/AMP(20MG/ML) INFIL ONE (13:19)
[2022-05-07] MEDS ORDERED: PROPOFOL IV EMULSION 10 MG/ML 20 ML VIAL IV ONE (13:19)
--- NOTE | 2022-05-07 14:23 | Operative Report ---
Post Operative Report Pre & Post Diagnosis Operation Date: 05/07/22 12:15 Pre-Op Diagnosis: Right Knee Osteoarthritis Post-Op Diagnosis: Right Knee Osteoarthritis I identified the patient and participated in the time-out.: Yes Procedure Operation Date: 05/07/22 12:15 Actual Procedures p Right Total Knee Arthroplasty(Right), jefe and Acticoat superficial wound VAC- Edwin Hoffmna MD Surgeon Edwin Hoffman MD Carton Stamper Nnamdi SMITH Estimated Blood Loss 5 Findings Consistent with Post-Op Diagnosis Specimens Bone cuts Drains 2 Hemovac Complications none Disposition Disposition: Recovery Room Indications 77-year female with chronic progressive osteoarthritis right knee [id number] medial compartment. Patient has successful left knee replacement wants to proceed with right knee replacement at this time. Description of Procedure Patient was taken to the operating room placed supine on the operating table and anesthetized under spinal MAC regional block anesthesia. Exam under anesthesia demonstrated 10 degree flexion contracture with flexion to 125 degrees and no instability with a varus knee. A pneumatic tourniquet was placed about the thigh of the right lower extremity. The right lower extremity was prepped and draped in usual sterile fashion. The leg was elevated exsanguinated with an Esmarch bandage and the pneumatic tourniquet was raised to 325 mm mercury. An anterior incision was made across the right knee. The skin was incised longitudinally subcutaneous flaps were elevated and an incision was made through the medial retinaculum extending up into the mid third of the quadriceps tendon and extended down to the medial tibial tubercle. Intra-articular findings demonstrated osteoarthritis medial compartment and on the patella there was a grade 4 patella chondral lesion normal trochlear groove articular surface with eburnated bone with [id number] medial compartment with medial osteophytes.. The knee was exposed by excising the infrapatellar fat pad, excising the meniscal remnants and anterior cruciate ligament. Any inflamed synovial tissue was resected. The fat pad over the anterior femur was resected for placement of the component in that area. The lateral synovial bands were release. The femur was exposed. The custom femoral cutting block was pinned in position. The distal femoral cutting block was applied. The distal femoral cut was made with the oscillating saw. The size 9, 4-in-1 cutting block was placed. The anterior and posterior chamfer cuts were made. The knee was extended and a subperiosteal peel lateral release was performed around the patella. The patella width was measured and width was reproduced using freehand cut technique. The 32 millimeter symmetrical patella was used. 3 drill holes are made for the pegs. The tibia was exposed. A custom tibial cutting block was positioned and drill holes were made for the cutting guide. Cutting guide was placed and the proximal cut was made with the oscillating saw. All osteophytes were resected. The lamina molder machine was used to assess ligamentous balance and the ligaments were balanced in extension and flexion. The tibia was reexposed and measured for a size E tibial component. This was externally rotated in line with the tibial tubercle and the fixation pins were drilled. The proximal tibia was fashioned with the drill and punch. The size 9 CR femoral trial was inserted. The trial MC inserts were used. The 12 mm insert gave balanced ligaments through full range of motion. The patella tracked centrally. the trials were removed. The orthomix anesthetic cocktail was injected per protocol. The knee was then copiously irrigated with pulsatile lavage saline solution. The final components were cemented with Refobacin bone cement. The final components were 9 narrow right CR persona femoral component, right E tibial component, 12 mm MC polyethylene and a 32 symmetrical patella. After the cement cured with the knee in full extension the Betadine soak was used per protocol. The knee joint was copiously irrigated with pulsatile lavage saline solution . 2 drains were brought out laterally and connected to a Hemovac. The quadriceps tendon and medial retinaculum were closed with interrupted [id number] #1 Vicryl sutures. The knee was taken through a full range of motion and repair was secure. The subcutaneous tissues were closed with 2-0 Vicryl sutures and skin was closed with cassie. Jefe and Acticoat superficial wound VAC were applied and the patient tolerated the procedure well. Nnamdi SMITH my physician ortho assistant participated as cutter first and was integral part in all aspects of the procedure, he assisted in soft tissue retraction, instrument management ,leg positioning, the closure and application of the superficial wound VAC and will participate in the postoperative care of the patient. I attest to the content of the Intraoperative Record and any orders documented therein. Any exceptions are noted below.
--- NOTE | 2022-05-07 15:30 | XRay Report ---
XR knee RT 1 or 2V routine CLINICAL HISTORY: Surgical Post Op TECHNIQUE: 2 views of the right knee were obtained. Comparison: None available at the time of this dictation. FINDINGS: Patient is status post total knee arthroplasty with expected postsurgical changes including soft tiss ue swelling and subcutaneous emphysema. No periarticular lucency or hardware fracture is seen. IMPRESSION: Expected postoperative appearance status post placement of total knee arthroplasty. ACT 112: Negative or not required by law. Electronically signed by: Kory Daniel M.D. 05/07/2022 3:29 PM
--- NOTE | 2022-05-07 16:29 | Anesthesiology Progress Note ---
Date of Service May 07, 2022 Anesthesia Post Procedure Vital Signs Vital Signs: Temp Pulse Pulse Resp BP Pulse Ox O2 Del Method 05/07/22 15:50 36.3 C L 52 L 19 123/66 94 Room Air 05/07/22 15:40 52 L 21 127/63 96 Room Air 05/07/22 16:00 52 L 22 119/63 96 Room Air 05/07/22 15:30 55 L 21 125/60 94 Room Air 05/07/22 15:20 53 L 18 123/60 100 Oxymask 05/07/22 15:10 55 L 17 118/59 L 100 Oxymask 05/07/22 15:00 36.1 C L 62 14 119/61 97 Oxymask 05/07/22 10:51 36.4 C L 65 18 149/71 H 98 Room Air O2 Flow Rate 05/07/22 15:50 05/07/22 15:40 05/07/22 16:00 05/07/22 15:30 05/07/22 15:20 11 05/07/22 15:10 11 05/07/22 15:00 11 05/07/22 10:51 Transfer of Care Handoff Completed per policy Notes Mental Status: alert / awake / arousable and participated in evaluation Patient Amnestic to Procedure: Yes Nausea / Vomiting: adequately controlled Pain: adequately controlled Airway Patency, RR, SpO2: stable & adequate BP & HR: stable & adequate Hydration State: stable & adequate Neuraxial Anesthesia: was administered and sensory block is resolving Anesthetic Complications: no major complications apparent and Pt Satisfied with anesthetic care
[2022-05-07] MEDS ORDERED: MAGNESIUM HYDROXIDE SUSP 30 ML UDC PO PRN (16:31)
[2022-05-07] MEDS ORDERED: bisacodyL 10 MG SUPP PR PRN (16:31)
[2022-05-07] MEDS ORDERED: SODIUM CHLORIDE 0.9% 1000ML 1,000 ML IV SCH (16:31)
[2022-05-07] MEDS ORDERED: METOCLOPRAMIDE HCL INJ 5 MG/ML 2 ML VIAL IV PRN (16:31)
[2022-05-07] MEDS ORDERED: HYDROmorphone INJ 0.5 MG/0.5 ML SYR IV PRN (16:31)
[2022-05-07] MEDS ORDERED: NALOXONE HCL 0.4 MG/1 ML VIAL/CARP IV PRN (16:31)
--- NOTE | 2022-05-07 17:26 | Consultation ---
Date of Consultation May 07, 2022 Assessment & Plan (1) S/P total knee arthroplasty: Post op day# 0 S/P right TKA by Dr Hoffman EBL# 5ml -pain management per ortho -wound management per ortho -PT/OT as appropriate -DVT prophylaxis per ortho -incentive spirometry -monitor H&H for acute blood loss anemia. pre-op Hgb: 13 (2) Hypertension: Stable Continue amlodipine, metoprolol succinate, losartan (3) Hyperlipidemia: Continue rosuvastatin (4) Factor 5 Leiden mutation, heterozygous: No personal history of DVT/PE Ortho surgery plans to start Xarelto POD #1 DVT Prophylaxis SCDs Disposition per primary service Follows with Koby Mei PA-C for routine care Pt was seen and care coordinated with Dr Serrano. See addendum Thank you for this consultation. We will follow the patient with you during their hospital stay. You can reach a [facility] the [facility] via [employer] Supervising Physician Co-Signing Physician Notes Pt seen and examined by me, care coordinated w/ Zain Norman, pls refer to her note above for further detail. Pt is 77-yo female with HTN, HLD, GERD, heterozygous factor V mutation seen in medical consultation s/p right TKA today by Dr. Hoffman. Patient is currently sitting up in bed, in no acute distress. She is awake alert oriented, answering questions appropriately. Son is present at the bedside. Patient denies any fevers, chills, chest pain, shortness of breath. She ate a dinner. Denies any nausea or abdominal pain. She is able to wiggle her toes, denies any pain. Lungs are clear to auscultation bilaterally. Heart sounds regular. Abdomen soft nontender nondistended. Surgical dressings and Yogi wraps over right knee. Continue to closely monitor, as above. MD Maggie History of Present Illness Requesting Physician: Dr Hoffman Reason for Consultation: Post op medical management Attending Physician: Edwin Hoffman MD History of Present Illness Patient is 77-year-old female with PMH HTN, HLD, GERD, heterozygous factor V mutation seen in medical consultation s/p right TKA today by Dr. Hoffman. Postop patient reports doing well and still has numbness of right lower extremity from block. Denies any current pain. Denies any nausea, vomiting, chest pain, shortness of breath, dizziness. Denies fever/chills, constipation, diarrhea, DANIEL, vision changes, neck pain, palpitations, cough, choking, rhinorrhea, abdominal pain, extremity edema, rashes, urinary symptoms. Allergies Allergy/AdvReac Type Severity Reaction Status Date / Time doxycycline AdvReac Intermediate loose Verified 04/08/22 07:33 bowels Home Medications Medication Instructions Recorded Confirmed Type losartan 50 mg tablet 50 mg PO QAM 01/13/20 05/07/22 History peg 400-propylene glycol 0.4 %-0.3 1 drp OPB DAILY 01/13/20 05/07/22 History % eye drops (Systane Ultra) celecoxib 200 mg capsule (Celebrex) 200 mg PO BID 30 days #60 caps 02/24/20 05/07/22 Rx amlodipine 2.5 mg tablet 2.5 mg PO DAILY 05/07/22 05/07/22 History metoprolol succinate 50 mg 50 mg PO DAILY 05/07/22 05/07/22 History tablet,extended release 24 hr rosuvastatin 5 mg tablet 5 mg PO DAILY 05/07/22 05/07/22 History Patient History Medical History (Updated 05/07/22 @ 17:34 by Macrina Norman PA-C) Dry eye syndrome Factor 5 Leiden mutation, heterozygous Dx 2020 (2 markers), [facility] History of COVID-19 Dx 05/2021- loss of taste/smell, fatigue, Covid PNA > symptoms resolved Hyperlipidemia Hypertension Osteoarthritis Paroxysmal atrial tachycardia Restless leg syndrome Sciatica Surgical History (Updated 05/07/22 @ 17:34 by Macrina Norman PA-C) H/O total hysterectomy History of bladder surgery BLADDER TACK History of cataract surgery RT/LEFT History of cholecystectomy History of colonoscopy History of tooth extraction S/P total knee arthroplasty Left TKA (02/22/20): SAB at L3/4 x1 attempt + PNB at [facility]. No issues noted per post-op anesthesia progress note. Family History Other Heart disease Stroke Social History Smoking Status: Never smoker Second Hand Exposure: No; Do You Dip or Chew Tobacco: No; Tobacco Cessation Education Requested by Patient: No Hx Alcohol Use: No Hx Substance Use: No Preferred Language: Greenlandic Communication Ability: Effective Guest Services Lead Required: No Beliefs That Will Affect Care: None Current Living Situation: Alone Other Information That Helps Us Care for You: No Feels Safe at Home: Yes Safety Concerns: Feels Safe At This Time Assistive Devices: None Review of Systems Review of Systems: All systems reviewed & are unremarkable except as noted in HPI & below Physical Exam Physical Exam: General: no distress, WDWN Head: normocephalic, atraumatic Eyes:conjunctiva non-injected, anicteric ENT: normal inspection external ears, nose, mucous membranes moist Neck: supple, trachea midline Lungs: clear, no respiratory distress, no wheezing/rhonchi/rales CV: RRR, no murmur, no pretibial edema Abd: normal BS, soft, non-tender Ext: RLE: +surgical dressing and YOGI wrap in place. able to dorsiflex and extend bilateral feet. Distal pulses intact and sensation to light touch intact bilaterally Neuro: A&O x 3, no focal deficits noted, normal affect Skin: warm, dry Results & Data ([facility]) Vital Signs (Past 12 Hours) Vital Signs Temp Pulse Pulse Resp BP Pulse Ox O2 Del Method 05/07/22 16:55 36.4 C L 58 L 18 131/71 95 Room Air 05/07/22 16:31 36.3 C L 58 L 18 133/74 95 Room Air 05/07/22 15:50 36.3 C L 52 L 19 123/66 94 Room Air 05/07/22 15:40 52 L 21 127/63 96 Room Air 05/07/22 16:00 52 L 22 119/63 96 Room Air 05/07/22 15:30 55 L 21 125/60 94 Room Air 05/07/22 15:20 53 L 18 123/60 100 Oxymask 05/07/22 15:10 55 L 17 118/59 L 100 Oxymask 05/07/22 15:00 36.1 C L 62 14 119/61 97 Oxymask 05/07/22 10:51 36.4 C L 65 18 149/71 H 98 Room Air O2 Flow Rate 05/07/22 16:55 05/07/22 16:31 05/07/22 15:50 05/07/22 15:40 05/07/22 16:00 05/07/22 15:30 05/07/22 15:20 11 05/07/22 15:10 11 05/07/22 15:00 11 05/07/22 10:51
[2022-05-07] MEDS: ceFAZolin 1000MG 1,000 MG/7.5 ML SYR IV SCH (20:13)
[2022-05-07] MEDS: DOCUSATE SODIUM 100 MG CAP PO SCH (20:13)
[2022-05-07] MEDS: SENNA 8.6 MG TAB PO SCH (20:13)
[2022-05-07] MEDS: ACETAMINOPHEN 500 MG TAB PO SCH (20:15)
[2022-05-07] MEDS ORDERED: diphenhydrAMINE Capsule 25 MG CAP PO PRN (22:54)
[2022-05-08] MEDS: oxyCODONE HCL IR 5 MG TAB (IMMEDIATE RELEASE) PO PRN ×2 (00:59→19:07)
[2022-05-08] MEDS: ceFAZolin 1000MG 1,000 MG/7.5 ML SYR IV SCH (05:37)
[2022-05-08] MEDS: ACETAMINOPHEN 500 MG TAB PO SCH ×3 (05:37→21:17)
[2022-05-08 06:10] LABS: Hematocrit (blood only) 33.5 % (34.1-44.9); Hemoglobin 11.2 g/dl (12.0-16.0); Mean Corpuscular Hemoglobin 28.4 pg (25.0-34.0); Mean Corpuscular Hgb Conc 33.4 g/dL (32.0-36.0); Mean Corpuscular Volume 84.8 fL (80.0-100.0); Mean Platelet Volume 10.7 fL (9.4-12.3); Platelet Count 189 K/uL (130-400); RDW Coefficient of Variation 13.1 % (11.5-14.5); RDW Standard Deviation 40.5 fL (36.4-46.3); Red Blood Count 3.95 M/uL (3.93-5.22); White Blood Count 10.75 K/ul (4.8-10.8)
[2022-05-08 06:39] LABS: Calcium 9.1 mg/dl (8.5-10.1); Creatinine Clr Calc Pharmacy 64.6 ml/min; Est GFR (African American) 93.6 ml/min; Est GFR (Non-African American) 80.8 ml/min; Potassium 4.3 mmol/L (3.5-5.1)
--- NOTE | 2022-05-08 07:22 | Orthopedic Progress Note ---
Date of Service May 08, 2022 Assessment & Plan (1) S/P total knee arthroplasty: Plan: Postop day #1 right total knee arthroplasty -PT/OT -Pain management as written -DVT prophylaxis: SCDs, teds, Xarelto 10 mg daily -AM labs: Hemoglobin 11.1 from 13 preop acute blood loss anemia due to surgical loss versus dilutional. -Discharge planning: Plan on discharge home with home health. Plan on discharge home tomorrow. Admission and Anticipated Discharge Date Admission Date: May 07, 2022 Subjective Patient is postop day 1 right total knee. She is doing well this morning. She has no pain currently. No other complaints. Denies chest pain, shortness of breath, nausea/vomiting, lightheadedness/dizziness. Review of Systems Review of Systems: All systems reviewed & are unremarkable except as noted in Subjective Physical Exam Physical Exam: Right knee: Dressing is clean, dry, intact. Hemovac on suction. Toes are mobile with good dorsiflexion. No calf tenderness. Distal neurovascular status and sensation intact. Constitutional: WD/WN, vitals as above Results & Data ([facility]) Vital Signs (Past 12 Hours) Vital Signs Temp Pulse Resp BP Pulse Ox O2 Del Method 05/08/22 07:18 36.7 C 59 L 16 138/69 98 Room Air 05/08/22 04:28 36.5 C 63 18 137/67 96 Room Air 05/07/22 21:10 36.5 C 64 16 133/67 95 05/07/22 19:23 68 16 130/67 95
[2022-05-08] MEDS: MULTIVITAMIN TAB PO SCH (07:56)
[2022-05-08] MEDS: LOSARTAN POTASSIUM 50 MG TAB PO SCH (07:56)
[2022-05-08] MEDS: CeleBREX 200 MG CAP PO SCH (07:56)
[2022-05-08] MEDS: DOCUSATE SODIUM 100 MG CAP PO SCH ×2 (07:56→19:41)
[2022-05-08] MEDS: RIVAROXABAN 10 MG TABLET PO SCH (07:56)
[2022-05-08] MEDS: amLODIPine BESYLATE 5 MG TAB PO SCH (07:56)
[2022-05-08] MEDS: ROSUVASTATIN CALCIUM 5 MG TAB PO SCH (07:57)
[2022-05-08] MEDS: METOPROLOL SUCC 50MG EXT REL TAB PO SCH (07:59)
[2022-05-08] MEDS: ARTIFICIAL TEARS OP SCH (07:59)
[2022-05-08] MEDS ORDERED: ATORVASTATIN 10 MG TAB PO SCH (09:00)
--- NOTE | 2022-05-08 14:42 | Hospitalist Progress Note ---
Date of Service May 08, 2022 Assessment & Plan (1) S/P total knee arthroplasty: Plan: Post op day# 1 S/P right TKA by Dr Hoffman Per ortho for pain control, wound care, anticoagulation and activities continue incentive spirometry, PT/OT when appropriate Acute blood loss anemia post-op, expected, no need for blood transfusion current Hgb 11.2, pre-op hgb 13.1 Monitor H&H (2) Hypertension: Plan: Stable. Continue amlodipine, metoprolol succinate, losartan (3) Hyperlipidemia: Plan: Continue rosuvastatin (4) Factor 5 Leiden mutation, heterozygous: Plan: No personal history of DVT/PE. Started on Xarelto by primary service this morning PCP: Koby Mei PA-C Dispo: Per primary service Thank you for this consultation. We will follow the patient with you during their hospital stay. You can reach [facility] via [employer] Admission and Anticipated Discharge Date Admission Date: May 07, 2022 Subjective Seen and examined in 381. Patient resting comfortably sitting upright in chair reading. Denies any pain at rest. Is waiting to work with therapy later this morning. Tolerating diet without issue. Denies any fever, chills, lightheadedness, chest pain, shortness of breath, nausea, vomiting, abdominal pain, dysuria, diarrhea or constipation. Review of Systems Review of Systems: At least ten systems reviewed and negative except as noted in the HPI. Physical Exam Physical Exam: Gen: WD/WN, NAD, sitting in bedside chair, A&Ox3 HEENT: Normocephalic, atraumatic, conjunctivae moist, sclerae anicteric, mucous membranes moist Lung: Clear to Auscultation bilaterally, no wheezes/rales/rhonchi Heart: Regular rate, regular rhythm, no murmurs, rubs, or gallops Abdomen: Soft, NT, ND +BS x 4 Extremities: + R knee with surgical dressing c/d/i. Drain visualized. No pitting edema Skin: Warm, no rash Results & Data Results & Data ([facility]) Vital Signs (Past 12 Hours) Vital Signs Temp Pulse Resp BP Pulse Ox O2 Del Method 05/08/22 10:57 36.5 C 64 16 115/56 L 98 Room Air 05/08/22 07:58 65 05/08/22 07:18 36.7 C 59 L 16 138/69 98 Room Air 05/08/22 04:28 36.5 C 63 18 137/67 96 Room Air Laboratory Results Short CBC 05/08/22 Range/Units 05:48 WBC 10.75 (4.8-10.8) K/ul Hgb 11.2 L (12.0-16.0) g/dl Hct 33.5 L (34.1-44.9) % Plt Count 189 (130-400) K/uL BMP 05/08/22 05:48 Sodium 136 Potassium 4.3 Chloride 105 Carbon Dioxide 25 BUN 18 Creatinine 0.72 Glucose 121 H Calcium 9.1 Diagnostic Findings Knee X-Ray 05/07/22 15:01 XR knee RT 1 or 2V routine CLINICAL HISTORY: Surgical Post Op TECHNIQUE: 2 views of the right knee were obtained. Comparison: None available at the time of this dictation. FINDINGS: Patient is status post total knee arthroplasty with expected postsurgical changes including soft tissue swelling and subcutaneous emphysema. No periarticular lucency or hardware fracture is seen. IMPRESSION: Expected postoperative appearance status post placement of total knee arthroplasty. ACT 112: Negative or not required by law. Electronically signed by: Kory Daniel M.D. 05/07/2022 3:29 PM
[2022-05-08] MEDS: SENNA 8.6 MG TAB PO SCH (19:40)
[2022-05-09] MEDS: ACETAMINOPHEN 500 MG TAB PO SCH (05:19)
[2022-05-09 06:35] LABS: Hematocrit (blood only) 31.3 % (34.1-44.9); Hemoglobin 10.4 g/dl (12.0-16.0); Mean Corpuscular Hemoglobin 28.3 pg (25.0-34.0); Mean Corpuscular Hgb Conc 33.2 g/dL (32.0-36.0); Mean Corpuscular Volume 85.3 fL (80.0-100.0); Mean Platelet Volume 10.6 fL (9.4-12.3); Platelet Count 172 K/uL (130-400); RDW Coefficient of Variation 13.6 % (11.5-14.5); RDW Standard Deviation 42.7 fL (36.4-46.3); Red Blood Count 3.67 M/uL (3.93-5.22); White Blood Count 6.56 K/ul (4.8-10.8)
[2022-05-09] MEDS: METOPROLOL SUCC 50MG EXT REL TAB PO SCH (07:56)
[2022-05-09] MEDS: MULTIVITAMIN TAB PO SCH (07:56)
[2022-05-09] MEDS: amLODIPine BESYLATE 5 MG TAB PO SCH (07:56)
[2022-05-09] MEDS: RIVAROXABAN 10 MG TABLET PO SCH (07:58)
[2022-05-09] MEDS: CeleBREX 200 MG CAP PO SCH (07:58)
[2022-05-09] MEDS: DOCUSATE SODIUM 100 MG CAP PO SCH (07:58)
[2022-05-09] MEDS: ARTIFICIAL TEARS OP SCH (07:59)
[2022-05-09] MEDS: LOSARTAN POTASSIUM 50 MG TAB PO SCH (07:59)
[2022-05-09] MEDS: ROSUVASTATIN CALCIUM 5 MG TAB PO SCH (07:59)
--- NOTE | 2022-05-09 08:05 | Orthopedic Progress Note ---
Date of Service May 09, 2022 Assessment & Plan (1) S/P total knee arthroplasty: Plan: Postop day #2 right total knee arthroplasty -PT/OT -Pain management as written -DVT prophylaxis: SCDs, teds, Xarelto 10 mg daily -Discharge planning: Plan on discharge home with home health. Plan on discharge home today. Admission and Anticipated Discharge Date Admission Date: May 07, 2022 Subjective Patient is resting in bed comfortably. She is doing well this morning. Pain well controlled. She is hoping to go home. No other complaints. Review of Systems Review of Systems: All systems reviewed & are unremarkable except as noted in Subjective Physical Exam Physical Exam: Right knee: Dressing is clean, dry, intact. Hemovac dressing site is clean, dry, intact. Toes are mobile with good dorsiflexion. No calf tenderness. Distal neurovascular status and sensation intact. Constitutional: WD/WN, vitals as above Results & Data ([facility]) Vital Signs (Past 12 Hours) Vital Signs Temp Pulse Resp BP BP Pulse Ox O2 Del Method 05/09/22 07:56 63 05/09/22 07:42 36.4 C L 59 L 16 175/93 H 185/75 H 96 Room Air 05/08/22 21:29 36.4 C L 57 L 16 157/71 H 97 Room Air
--- NOTE | 2022-05-09 08:58 | Hospitalist Progress Note ---
Date of Service May 09, 2022 Assessment & Plan (1) S/P total knee arthroplasty: Plan: Post op day#2 S/P right TKA by Dr Hoffman Per ortho for pain control, wound care, anticoagulation and activities continue incentive spirometry, PT/OT when appropriate Acute blood loss anemia post-op, expected, no need for blood transfusion current Hgb 11.2 -> 10.4, pre-op hgb 13.1 Monitor H&H (2) Hypertension: Plan: Intermittently elevated, in setting of post-op pain. Continue amlodipine, metoprolol succinate, losartan BP improved to 150/71 after AM meds Discussed patient checking BP daily at home and keeping log to bring to next PCP appointment (3) Hyperlipidemia: Plan: Continue rosuvastatin (4) Factor 5 Leiden mutation, heterozygous: Plan: No personal history of DVT/PE. Started on Xarelto by primary service this morning PCP: Koby Mei PA-C Dispo: Per primary service Thank you for this consultation. We will follow the patient with you during their hospital stay. You can reach a [facility] of [facility]01 via [employer] Admission and Anticipated Discharge Date Admission Date: May 07, 2022 Supervising Physician Co-Signing Physician Notes Pt seen and examined by me, care coordinated w/ JRuiz Robledo PA-C, pls refer to her note above for further detail. 77-yo female with HTN, HLD, GERD, heterozygous factor V mutation seen in medical consultation s/p right TKA by Dr. Hoffman. Patient seen walking in hallway w/o any difficulty. She is in no distress. She is awake alert oriented, answering questions appropriately. Patient denies any fevers, chills, chest pain, shortness of breath, nausea or abdominal pain. Surgical dressings over right knee. Lungs are clear to auscultation bilaterally. Heart sounds regular. Abdomen soft nontender nondistended. Blood pressure elevated, discussed to continue home medications and monitor blood pressure at home. Patient reports that her blood pressure was normal prior to admission. She will need to follow-up with PCP if blood pressure readings at home also elevated. Patient understands, and is in agreement with plan. MD Maggie Subjective Seen and examined in [id number]. Patient resting comfortably sitting upright in chair. Denies any pain at rest. Some discomfort while working with therapy. Tolerating diet without issue. Denies any fever, chills, lightheadedness, chest pain, shortness of breath, nausea, vomiting, abdominal pain, dysuria, diarrhea or constipation. Discussed variation in BP with elevated read of 175/93 this morning with improvement to 150/71 following AM meds. Review of Systems Review of Systems: At least ten systems reviewed and negative except as noted in the HPI. Physical Exam Physical Exam: Gen: WD/WN, NAD, sitting in bedside chair, A&Ox3 HEENT: Normocephalic, atraumatic, conjunctivae moist, sclerae anicteric, mucous membranes moist Lung: Clear to Auscultation bilaterally, no wheezes/rales/rhonchi Heart: Regular rate, regular rhythm, no murmurs, rubs, or gallops Abdomen: Soft, NT, ND +BS x 4 Extremities: + R knee with surgical dressing c/d/i. Drain visualized. No pitting edema Skin: Warm, no rash Results & Data Results & Data ([facility]) Vital Signs (Past 12 Hours) Vital Signs Temp Pulse Resp BP BP Pulse Ox O2 Del Method 05/09/22 08:57 150/71 H 05/09/22 07:56 63 05/09/22 07:42 36.4 C L 59 L 16 175/93 H 185/75 H 96 Room Air 05/08/22 21:29 36.4 C L 57 L 16 157/71 H 97 Room Air Laboratory Results Short CBC 05/09/22 Range/Units 06:15 WBC 6.56 (4.8-10.8) K/ul Hgb 10.4 L (12.0-16.0) g/dl Hct 31.3 L (34.1-44.9) % Plt Count 172 (130-400) K/uL Diagnostic Findings Knee X-Ray 05/07/22 15:01 XR knee RT 1 or 2V routine CLINICAL HISTORY: Surgical Post Op TECHNIQUE: 2 views of the right knee were obtained. Comparison: None available at the time of this dictation. FINDINGS: Patient is status post total knee arthroplasty with expected postsurgical changes including soft tissue swelling and subcutaneous emphysema. No periarticular lucency or hardware fracture is seen. IMPRESSION: Expected postoperative appearance status post placement of total knee arthro plasty. ACT 112: Negative or not required by law. Electronically signed by: Kory Daniel M.D. 05/07/2022 3:29 PM
--- NOTE | 2022-05-10 07:48 | Discharge Summary ---
Date of Service May 10, 2022 Admission HPI Per Admitting Provider 77-year-old female with past medical history significant for hypertension, factor V Leiden mutation who presents with ongoing right knee pain. She has failed conservative measures including steroid injections and anti- inflammatories. Pain is interfering with her daily activities. She would like to proceed with surgical invention. Patient denies headaches, sweats, fevers, chills, double vision, blurred vision, cough, sore throat, dysphagia, chest pain, sob, wheezing, n/v/d/c, numbness, tingling, fatigue, urinary symptoms, mood disorders. ROS positive for right knee pain and stiffness. Admission Exam Per Admitting Provider Constitutional: well developed and well nourished; no acute distress Eyes: PERRL, conjunctivae normal, anicteric sclerae ENMT: external ear and nose normal, oropharynx normal Neck:M trachea midline, no thyromegaly Respiratory: normal respiratory effort, lungs clear to auscultation Cardiovascular: RRR, no murmur, no edema Musculoskeletal: Right knee: Varus alignment. Mild effusion. Tenderness medial joint line. She has positive Ese's. Stable to valgus varus stress test. Range of motion 10 to 125 degrees. Skin: no rashes, warm and dry Neurologic: patellar DTR's 2+ bilat, sensation intact Psychiatric: A+Ox3, euthymic affect Principal Diagnosis Right knee osteoarthritis Discharge Exam Right knee: Dressing is clean, dry, intact. Hemovac dressing site is clean, dry, intact. Toes are mobile with good dorsiflexion. No calf tenderness. Distal neurovascular status and sensation intact. Constitutional WD/WN, vitals as above Discharge Data Allergies Allergy/AdvReac Type Severity Reaction Status Date / Time doxycycline AdvReac Intermediate loose Verified 04/08/22 07:33 bowels Consultations 05/02/22 16:13 Consult Hospitalist Routine Procedures Performed Operation Date: 05/07/22 12:15 Actual Procedures p Right Total Knee Arthroplasty(Right) - Edwin Hoffman MD Ordered Studies 05/07/22 05:00 US - OR guided needle placemen Routine Hospital Course (1) S/P total knee arthroplasty: Postop day #2 right total knee arthroplasty -PT/OT -Pain management as written -DVT prophylaxis: SCDs, teds, Xarelto 10 mg daily -Discharge planning: Plan on discharge home with home health. Plan on discharge home today. Postop day #1 right total knee arthroplasty -PT/OT -Pain management as written -DVT prophylaxis: SCDs, teds, Xarelto 10 mg daily -AM labs: Hemoglobin 11.1 from 13 preop acute blood loss anemia due to surgical loss versus dilutional. -Discharge planning: Plan on discharge home with home health. Plan on discharge home tomorrow. Lab Results 05/07/22 05/08/22 05/08/22 Range/Units Unknown 05:48 05:48 WBC 10.75 (4.8-10.8) K/ul RBC 3.95 (3.93-5.22) M/uL Hgb 11.2 L (12.0-16.0) g/dl Hct 33.5 L (34.1-44.9) % MCV 84.8 (80.0-100.0) fL MCH 28.4 (25.0-34.0) pg MCHC 33.4 (32.0-36.0) g/dL RDW Std Deviation 40.5 (36.4-46.3) fL RDW Coeff of Alireza 13.1 (11.5-14.5) % Plt Count 189 (130-400) K/uL MPV 10.7 (9.4-12.3) fL Sodium 136 (136-145) mmol/L Potassium 4.3 (3.5-5.1) mmol/L Chloride 105 (98-107) mmol/L Carbon Dioxide 25 (21-32) mmol/L Anion Gap 6 (3-11) BUN 18 (6-23) mg/dl Creatinine 0.72 (0.6-1.2) mg/dl Est Cr Clr Drug Dosing 64.6 ml/min Est GFR ( Amer) 93.6 ml/min Est GFR (Non-Af Amer) 80.8 ml/min BUN/Creatinine Ratio 25.0 H (10-20) Glucose 121 H (70-99(Fasting)) mg/dl Calcium 9.1 (8.5-10.1) mg/dl Hepatitis C Ab (EIA) (NON-REACTIVE) Hep C Ab Signal/Cutoff (<1.00) SARS-CoV-2, RNA, NAAT NEGATIVE (NEGATIVE) 05/08/22 05/09/22 Range/Units 05:48 06:15 WBC 6.56 (4.8-10.8) K/ul RBC 3.67 L (3.93-5.22) M/uL Hgb 10.4 L (12.0-16.0) g/dl Hct 31.3 L (34.1-44.9) % MCV 85.3 (80.0-100.0) fL MCH 28.3 (25.0-34.0) pg MCHC 33.2 (32.0-36.0) g/dL RDW Std Deviation 42.7 (36.4-46.3) fL RDW Coeff of Alireza 13.6 (11.5-14.5) % Plt Count 172 (130-400) K/uL MPV 10.6 (9.4-12.3) fL Sodium (136-145) mmol/L Potassium (3.5-5.1) mmol/L Chloride (98-107) mmol/L Carbon Dioxide (21-32) mmol/L Anion Gap (3-11) BUN (6-23) mg/dl Creatinine (0.6-1.2) mg/dl Est Cr Clr Drug Dosing ml/min Est GFR ( Amer) ml/min Est GFR (Non-Af Amer) ml/min BUN/Creatinine Ratio (10-20) Glucose (70-99(Fasting)) mg/dl Calcium (8.5-10.1) mg/dl Hepatitis C Ab (EIA) NON-REACTIVE (NON-REACTIVE) Hep C Ab Signal/Cutoff <0.02 (<1.00) SARS-CoV-2, RNA, NAAT (NEGATIVE) Total Time Total Time Spent Total Time Spent (In Minutes): 20 Discharge Plan Discharge Items Patient Disposition: Home - Self-Care Reason For Visit: Right Knee Osteoarthritis Discharge Diagnosis: Right knee osteoarthritis Activity: Per Instructions section Non-emergency contact: Surgeon Call non-emergency contact if: you have any medication questions, your pain is not controlled, your pain is concerning for you, you have a fever, your temperature is above 101, your wound has increased redness and your wound has increased drainage Follow-up/Referrals: Koby Mei PA-C [Primary Care Provider] - Diet: Regular Addtl Attending Provider Instructions: ACTIVITY RECOMMENDATIONS: SELF CARE INSTRUCTIONS AFTER TOTAL KNEE REPLACEMENT A. You may need to continue a physical therapy program after discharge from the hospital. There are several options available to you. Your doctor will assist you in selecting the best one for you. 1. An out-patient facility 2 to 3 times a week for therapy or home therapy. 2. Continue working on all exercises taught to you in the hospital. Your goals should be to increase bending of your knee to 90 degrees and beyond and to fully straighten your knee. B. You may progress at your own pace from walking with a walker or crutches to a cane; then to no assistive devices. C. Make walking a part of your daily routine. Be up as much as comfortable with rest periods throughout the day. Rest with leg elevation is very important. Use the ice wrap frequently for the first 3-4 weeks. D. There are no restrictions on activities. You may ride in a car, shop, participate in housekeeper and all social activities. E. Wear the long elastic stockings (NEWTON hose) 20 hours a day for 2 weeks after surgery. They can be removed several times a day for laundering and for a bath. F. You may shower, no tub baths until cleared by your doctor. SPECIAL CARE INSTRUCTIONS: VERY IMPORTANT TO READ AND REVIEW A. There are a few signs you need to watch for after you are home. Call [facility] if you notice any of the followin. Increased severe knee pain. Some pain is expected especially when you exercise. 2. Increased swelling in your leg or knee; pain or swelling of the calf muscle in either lower leg. 3. Any fluid drainage from the incision. 4. Shortness of breath or chest pain. B. Please call [facility] at if you have any concerns or questions about your operation or recovery. The doctor or his nurse will return your call promptly. C. You must take antibiotics before dental work, bladder, bowel or other surgery. Your doctor will provide you with a permanent care to carry describing this precaution. IMPORTANT: * REMEMBER TO TAKE ASPIRIN, 81 MG, TWICE DAILY FOR 4 WEEKS UNLESS OTHERWISE DIRECTED. THIS IS YOUR BLOOD THINNER. * HIGH RISK PATIENTS MAY BE PRESCRIBED A STRONGER BLOOD THINNER. THIS WILL BE PROVIDED AT DISCHARGE. * CALL IF INCREASED PAIN, REDNESS, DRAINAGE OR FEVER GREATER THAT 101. * WEAR NEWTON HOSE 20 HOURS PER DAY FOR 2 WEEKS. This is a large suction dressing covering your incision. This will help pull any excess drainage from the wound and allow your incision to heal properly. You may shower with this if you can keep the unit outside of the shower. If any bleeding or leakage is noted please call your doctor's office. This will remain on your incision for 7 days and then should be removed. This can be done yourself or by the home nursing staff if applicable. The entire unit is disposable once removed. Once removed, keep incision clean and dry. If redness or drainage is noted, please call your surgeon. IF INCISION IS LEAKING THROUGH DRESSING, CALL THE OFFICE . FOLLOW UP VISIT: If appointment is not already scheduled: Please call [facility] to make a follow-up appointment for 2 weeks after your surgery at . Addtl Other Sales Support Worker Provider Instructions: Recommend continuing current blood pressure medication regimen. As discussed, please take home blood pressure daily and keep a log to discuss at next PCP appointment. Stand-Alone Forms: My [facility] [place] [employer], Smoking Cessation Medications and DC Order Prescriptions: New Xarelto 10 mg Tablet 10 mg PO DAILY Qty: 30 0RF acetaminophen [Tylenol Extra Strength] 500 mg Tablet 1,000 mg PO Q8 Qty: 60 0RF celecoxib [Celebrex] 200 mg Capsule 200 mg PO QAM Qty: 30 0RF oxycodone 5 mg Tablet 5 - 10 mg PO .Q4h-6h MDD 6 PRN (Reason: pain) Qty: 30 0RF Rx Instructions: Ongoing therapy Dr. Hoffman supervising Continued losartan 50 mg Tablet 50 mg PO QAM Systane Ultra 0.4-0.3 % Drops 1 drp OPB DAILY metoprolol succinate 50 mg tablet extended release 24 hr 50 mg PO DAILY rosuvastatin 5 mg tablet 5 mg PO DAILY amlodipine 2.5 mg tablet 2.5 mg PO DAILY Discontinued celecoxib [Celebrex] 200 mg Capsule 200 mg PO BID 30 Days Qty: 60 1RF Discharge Orders: Discharge Order (Routine); Ordered 05/09/22 Ordered By: Cisco Pena/Other Patient Handouts: RICE, Knee Replacement Recovery at Home Admission Data Admit Date/Time: 05/07/22 15:01 Attending Provider: Edwin Hoffman Admit Provider: Edwin Hoffman Primary Care Provider: Koby Mei Other Providers: Palomo Sol ; Roger Serrano ; Kathy Robledo Other Interventions: Discharge Summary Assessment (RN) Last Done: 05/09/22 11:39
== END 2022-05-09 13:46 | disposition home or self-care (01) ==
LOC: ASU 09:59 → 3N 09:59
DX: Z79.899 Other long term (current) drug therapy; E78.5 Hyperlipidemia, unspecified; M17.11 Unilateral primary osteoarthritis, right knee; I10 Essential (primary) hypertension; D68.51 Activated protein C resistance; Z88.1 Allergy status to other antibiotic agents